=== PATIENT | female | born 1950 | race Caucasian/White ===

== ENCOUNTER 2016-11-02 19:48 | Emergency (ER) | payer OTHER ==
[2016-11-02 20:25] VITALS: BMI 29.7
[2016-11-02] MEDS ORDERED: methylPREDNISolone NA SUCC 125 MG/2 ML VIAL IVPB ONE (20:53)
[2016-11-02] MEDS ORDERED: SODIUM CHLORIDE 500 ML IV STA (20:53)
[2016-11-02] MEDS: ALBUTEROL SO4 2.5/IPRATROPIUM 0.5 INH SOL 3 ML VIAL.NEB. NEB SCH ×2 (21:20→22:10)
[2016-11-02] MEDS ORDERED: ALBUTEROL SO4 2.5/IPRATROPIUM 0.5 INH SOL 3 ML VIAL.NEB. NEB ONE (21:32)
[2016-11-02] MEDS ORDERED: methylPREDNISolone NA SUCC 125 MG/2 ML VIAL ONE (21:33)
[2016-11-02 22:13] LABS: MCH 27.4 pg (25.7-33.7); MCHC 33.2 g/dl (32.0-36.0); MEAN CELL VOLUME 82.7 fl (80-96); MEAN PLT VOLUME 7.3 fl (7.5-11.1); PLATELET COUNT 267 K/MM3 (134-434); RDW 14.1 % (11.6-15.6); WHITE BLOOD COUNT 10.3 K/mm3 (4.0-10.0)
--- NOTE | 2016-11-02 22:33 | PDOC ---
History of Present Illness - General Chief Complaint: Respiratory Stated Complaint: SOB/COUGH Time Seen by Provider: 11/02/16 20:42 History Source: Patient, Family Exam Limitations: No Limitations - History of Present Illness Initial Comments: 11/02/16 22:29 66yo Female patient w/ PmHx: Pneumonia presents to ED c/o cough, cold x 10 days. Patient visited with PCP on Thursday and was given Z-wilber, and told to take nebulizer q 4 hr for trouble breathing. Patient reports today trouble breathing increased and she is concerned for possible pneumonia. Denies fever, CP, Back pain, Abd pain, n/v/d, rash, or any other complaints at this time. Timing/Duration: reports: other (10 days) Severity: reports: moderate Possible Cause: Yes: occasional episodes Modifying Factors: improves with: albuterol inhaler, antibiotics Associated Symptoms: reports: cough, shortness of breath, wheezing Past History - Past Medical History Allergies/Adverse Reactions: Allergies Allergy/AdvReac Type Severity Reaction Status Date / Time No Known Allergies Allergy Verified 11/02/16 20:25 Home Medications: Ambulatory Orders Atenolol [Tenormin -] 50 mg PO BID 11/12/14 Glimepiride 4 mg PO BID 11/12/14 Levothyroxine [Synthroid -] 125 mcg PO DAILY 11/12/14 Ropinirole HCl [Requip] 6 mg PO DAILY 11/12/14 Ondansetron [Zofran Odt -] 4 mg SL TID #21 od.tablet 10/16/15 Calcium Carbonate [Calcium] 500 mg PO DAILY 12/25/15 Cholecalciferol (Vitamin D3) [Vitamin D3] 400 unit PO DAILY 12/25/15 Diclofenac Epolamine [Flector] 1 each TP DAILY 12/25/15 Vitamin E 400 unit PO DAILY 12/25/15 Acetamin-Codein 300-30 mg/12.5 30 - 300 mg PO PRN PRN 11/02/16 Azithromycin 250 mg PO BID 11/02/16 Novolog 10 unit SQ BID 11/02/16 Albuterol Sulfate Inhaler - [Ventolin Hfa Inhaler -] 1 - 2 inh PO Q4H PRN #1 inhaler 11/03/16 Prednisone [Deltasone -] 40 mg PO DAILY #8 tablet 11/03/16 Anemia: No Asthma: No Cancer: No Cardiac Disorders: Yes (ASHD,PERICARDIAL EFFUSION,MVP) CVA: No COPD: No Dementia: No Diabetes: Yes (NIDM) GI Disorders: Yes (DIVERTICULOSIS,ISCHEMIC COLITIS,CHRONIC GASTROPARESIS) HTN: Yes Hypercholesterolemia: Yes Liver Disease: Yes (NAFLD) Seizures: No Thyroid Disease: Yes (HYPOTHYROIDISM,SUSAN) - Surgical History Abdominal Surgery: Yes (EXPLOR LAP.-BLEEDING FROM RESIDUAL OVARY) Appendectomy: Yes Cardiac Surgery: Yes (S/P ANGIOPLASTY) Neurologic Surgery: No Orthopedic Surgery: (BACK SURGERY X 3(LAMI/FUSION)) - Immunization History Immunization Up to Date: Yes - Psycho/Social/Smoking Cessation Hx Anxiety: No Suicidal Ideation: No Smoking History: Never smoked Have you smoked in the past 12 months: No Information on smoking cessation initiated: No Hx Alcohol Use: No Drug/Substance Use Hx: No Substance Use Type: None Hx Substance Use Treatment: No *Physical Exam - Vital Signs Last Vital Signs Temp Pulse Resp BP Pulse Ox 98.1 F 75 18 142/85 96 11/02/16 20:20 11/02/16 20:20 11/02/16 20:20 11/02/16 20:20 11/02/16 21:00 ED Treatment Course - LABORATORY CBC & Chemistry Diagram: 11/02/16 21:58 11/02/16 21:58 - ADDITIONAL ORDERS Additional order review: 11/02/16 21:58 RBC 4.44 MCV 82.7 MCHC 33.2 RDW 14.1 MPV 7.3 L - RADIOLOGY Radiology Studies Ordered: Category Date Time Status CHEST PA & LAT [RAD] Stat Radiology 11/02/16 20:53 Ordered - Medications Given in the ED: ED Medications Discontinued Medications Generic Name Dose Route Start Last Admin Trade Name Freq PRN Reason Stop Dose Admin Albuterol/Ipratropium 1 amp 11/02/16 21:00 11/02/16 21:20 Duoneb - NEB 11/02/16 21:16 1 amp Q15M ANTOINE Administration Sodium Chloride 500 mls @ 500 mls/hr 11/02/16 20:53 11/02/16 21:20 Normal Saline - IV 11/02/16 21:52 500 mls/hr ASDIR STA Administration Methylprednisolone Sodium Succinate 125 mg 11/02/16 20:53 11/02/16 21:20 Solu-Medrol - IVPB 11/02/16 20:54 125 mg ONCE ONE Administration Medical Decision Making - Medical Decision Making 11/03/16 00:25 NORMAL CHEST X-RAY. WILL RX PREDNISONE. *DC/Admit/Observation/Transfer Diagnosis at time of Disposition: Bronchitis - Discharge Dispostion Disposition: HOME Condition at time of disposition: Improved Admit: No - Prescriptions Prescriptions: Prednisone [Deltasone -] 40 mg PO DAILY #8 tablet Albuterol Sulfate Inhaler - [Ventolin Hfa Inhaler -] 1 - 2 inh PO Q4H PRN #1 inhaler PRN Reason: DIFF BREATHING - Patient Instructions Printed Discharge Instructions: DI for Acute Bronchitis Additional Instructions: FOLLOW UP WITH YOUR PRIMARY CARE PROVIDER NEEDED. TAKE MEDICATIONS PRESCRIBED. RETURN IF SYMPTOMS WORSEN OR ANY CONCERNS FOR FURTHER EVALUATION. Print Language: LATVIAN
[2016-11-02 22:34] LABS: ALBUMIN 3.7 g/dl (3.4-5.0); ANION GAP 11 (8-16); CALCIUM 8.7 mg/dL (8.5-10.1); CO2 25 mmol/L (21-32); CREATININE 0.9 mg/dL (0.55-1.02); GLUCOSE,RANDOM 93 mg/dL (74-106); SGOT/AST 30 U/L (15-37); SGPT/ALT 47 U/L (12-78)
[2016-11-02 22:38] LABS: ALK PHOS 168 U/L (45-117); BILIRUBIN,TOTAL 0.2 mg/dL (0.2-1.0); TROPONIN I < 0.02 ng/ml (0.00-0.05)
[2016-11-03 00:49] VITALS: BP 140/84; PULSE 70; TEMP 98.4
== END 2016-11-03 00:48 | disposition home or self-care (01) ==
LOC: JER 19:48
PROC: 3E0F7GC Introduction of Other Therapeutic Substance into Respiratory Tract, Via Natural or Artificial Opening (ICD-10-PCS; principal; 2016-11-02)
PROC: 3E0333Z Introduction of Anti-inflammatory into Peripheral Vein, Percutaneous Approach (ICD-10-PCS; 2016-11-02)
DX: J20.9 Acute bronchitis, unspecified (principal); I25.10 Atherosclerotic heart disease of native coronary artery without angina pectoris; Z98.61 Coronary angioplasty status; I10 Essential (primary) hypertension; E11.9 Type 2 diabetes mellitus without complications; Z79.84 Long term (current) use of oral hypoglycemic drugs; E78.00 Pure hypercholesterolemia, unspecified; E03.9 Hypothyroidism, unspecified; K76.0 Fatty (change of) liver, not elsewhere classified; I34.1 Nonrheumatic mitral (valve) prolapse
CPT/HCPCS: 36415; 71020-TC; 80053; 82550; 84484; 85027; 94640; 96374; 99282-25

== ENCOUNTER 2017-03-11 07:50 | Day surgery (SDC) | payer OTHER ==
[2017-03-10 14:56] VITALS: BMI 28.3
[2017-03-11 08:25] VITALS: TEMP 98.2
[2017-03-11] MEDS ORDERED: PROPOFOL 20 ML ONE ×2 (08:55)
[2017-03-11] MEDS ORDERED: LIDOCAINE HCL/PF 2% SDV 5ML VIAL ONE (08:56)
[2017-03-11 10:40] VITALS: BP 130/58; PULSE 66
--- NOTE | 2017-03-12 14:10 | PATH ---
Surgical Pathology Report Patient Name: KVNG BOWLES [facility]. Rec. #: [id number] /Age/Gender: 1950 (Age: 66) / F Account: [id number] Location: U-ENDOSCOPY Taken: 03/11/2017 Received: 03/11/2017 Reported: 03/12/2017 Physicians: Adan Levin M.D. Specimen(s) Received BX RIGHT COLON POLYP Clinical History Rectal bleeding, colon cancer screening Right colon polyp Final Diagnosis COLON, RIGHT, BIOPSY: COLONIC MUCOSA WITH NO PATHOLOGIC CHANGES. NO ACTIVE COLITIS, ARCHITECTURAL DISTORTION, GRANULOMATA, OR DYSPLASIA IDENTIFIED. NO MICROSCOPIC COLITIS IDENTIFIED (NO LYMPHOCYTIC OR COLLAGENOUS COLITIS IDENTIFIED). Electronically Signed Nestor Renae M.D. Gross Description Received in formalin, labeled "biopsy right colon polyp" is a mullins, irregular portion of soft tissue measuring 0.2 cm. in greatest dimension. The specimen is submitted in toto in one cassette. 03/11/201703/11/2017
== END 2017-03-11 10:49 | disposition home or self-care (01) ==
LOC: JASU-ENDO 07:50
PROVIDERS: ATTEND Internal Medicine Gastroenterology
PROC: 0DBK8ZX Excision of Ascending Colon, Via Natural or Artificial Opening Endoscopic, Diagnostic (ICD-10-PCS; principal; 2017-03-11 09:00)
DX: Z12.11 Encounter for screening for malignant neoplasm of colon (principal); D12.2 Benign neoplasm of ascending colon; K57.30 Diverticulosis of large intestine without perforation or abscess without bleeding; K64.8 Other hemorrhoids
CPT/HCPCS: 88305-TC

== ENCOUNTER 2021-10-30 05:15 | Day surgery (SDC) | payer OTHER ==
[2021-10-28 09:41] VITALS: BMI 30.2
[2021-10-30 09:44] VITALS: TEMP 97.3
[2021-10-30 10:45] VITALS: BP 117/63; PULSE 62
== END 2021-10-30 10:57 | disposition home or self-care (01) ==
LOC: JASU-ENDO 05:15
PROVIDERS: ATTEND Internal Medicine Gastroenterology
PROC: 0DBK8ZX Excision of Ascending Colon, Via Natural or Artificial Opening Endoscopic, Diagnostic (ICD-10-PCS; 2021-10-30)
PROC: 0DB98ZX Excision of Duodenum, Via Natural or Artificial Opening Endoscopic, Diagnostic (ICD-10-PCS; 2021-10-30)
PROC: 0DB68ZX Excision of Stomach, Via Natural or Artificial Opening Endoscopic, Diagnostic (ICD-10-PCS; 2021-10-30)
PROC: 0DBL8ZX Excision of Transverse Colon, Via Natural or Artificial Opening Endoscopic, Diagnostic (ICD-10-PCS; principal; 2021-10-30 09:00)
DX: D50.9 Iron deficiency anemia, unspecified (principal); Z86.010 Personal history of colon polyps; D12.2 Benign neoplasm of ascending colon; K57.30 Diverticulosis of large intestine without perforation or abscess without bleeding; K64.8 Other hemorrhoids; K29.50 Unspecified chronic gastritis without bleeding; K31.9 Disease of stomach and duodenum, unspecified; R10.13 Epigastric pain
CPT/HCPCS: 82962; 88305-TC